=== PATIENT | female | born 1950 | race African-American/Black ===

== ENCOUNTER 2021-11-26 09:43 | Outpatient (CLI) | payer BC | END 2021-11-26 09:44 | disposition home or self-care (01) | LOC: BICMAMMO 09:43 | DX: Z12.31 Encounter for screening mammogram for malignant neoplasm of breast (principal); Z13.820 Encounter for screening for osteoporosis; I48.91 Unspecified atrial fibrillation | CPT/HCPCS: 71046; 77063; 77067; 77080 ==